=== PATIENT | female | born 1950 | race Caucasian/White ===

== ENCOUNTER 2018-06-18 10:19 | Outpatient (CLI) | payer MEDICARE ==
--- NOTE | 2018-06-18 11:58 | ULT ---
ABDOMINAL ULTRASOUND: HISTORY: Abdominal pain. FINDINGS: The liver demonstrates increased echogenicity, consistent with fatty infiltration. No focal mass or intrahepatic ductal dilatation is identified. No gallstones, gallbladder wall thickening, or pericho lecystic fluid is seen. The common duct measures 7 mm in diameter. No hydronephrosis is seen on eit her side. There is a 1.7 cm cyst on the left kidney. The visualized portions of the pancreas, aorta , and IVC are unremarkable. No free fluid is identified. IMPRESSION: 1. Fatty liver. 2. No evidence of cholelithiasis. 3. Left renal cyst. POS: [facility]
== END 2018-06-18 10:20 | disposition home or self-care (01) ==
LOC: SCSULT 10:19
PROVIDERS: ATTEND Internal Medicine
DX: R10.11 Right upper quadrant pain (principal); R10.32 Left lower quadrant pain; K76.0 Fatty (change of) liver, not elsewhere classified; N28.1 Cyst of kidney, acquired
CPT/HCPCS: 76700

== ENCOUNTER 2019-07-22 04:06 | Emergency (ER) | payer MEDICARE ==
[2019-07-22] MEDS ORDERED: Metoprolol Tartrate 5 MG/5 ML VIAL ONE (04:20)
[2019-07-22 04:32] LABS: #Basophils 0.1 thou/uL (0.0-0.2); #Eosinphils 0.1 thou/uL (0.0-0.7); #Lymphocytes 3.8 thou/uL (1.20-3.40); #Monocytes 0.9 thou/uL (0.11-0.59); #Neutrophils 4.8 thou/uL (1.40-6.50); %Basophils 1.4 % (0.0-1.0); %Eosinophils 0.7 % (0.0-10.0); %Lymphocytes 39.3 % (21.0-51.0); %Monocytes 8.9 % (0.0-10.0); %Neutrophils 49.8 % (42.0-75.0); Hemoglobin 15.6 g/dL (12.0-16.0); Mean Corpuscular HGB CONC 34.5 g/dL (32.0-36.0); Mean Corpuscular Volume 89.8 fL (78.0-98.0); Mean Platelet Volume 8.6 fL (7.4-10.4); Platelet Count 243 thou/uL (130-400); Red Blood Cell (RBC) Count 5.02 mill/uL (4.20-5.40); White Blood Cell (WBC) Count 9.7 thou/uL (4.8-10.8)
[2019-07-22 04:54] LABS: ALT (SGPT) 51 U/L (8-55); AST (SGOT) 29 U/L (5-34); Albumin 4.9 g/dL (3.4-4.8); Alkaline Phosphatase 81 U/L (40-150); Anion Gap 16 mmol/L (10-20); BUN (Urea Nitrogen) 17 mg/dL (9.8-20.1); Bilirubin, Total 0.9 mg/dL (0.2-1.2); Calc. Creatinine Clearance 0 mL/min (70-130); Calcium 10.1 mg/dL (7.8-10.44); Carbon Dioxide 23 mmol/L (23-31); Chloride 100 mmol/L (98-107); Estimated GFR-MDRD 77; Globulin 2.6 g/dL (2.4-3.5); Glucose 128 mg/dL (80-115); Potassium 3.3 mmol/L (3.5-5.1); Protein, Total 7.5 g/dL (6.0-8.3); Sodium 136 mmol/L (136-145)
--- NOTE | 2019-07-22 08:28 | RAD ---
PORTABLE CHEST: HISTORY: Dyspnea. FINDINGS: Lungs are clear. Heart and mediastinum appear normal. Vasculature normal. IMPRESSION: No acute abnormality. POS: [facility]
--- NOTE | 2019-07-23 13:38 | EKG ---
Test Reason : Blood Pressure : / mmHG Vent. Rate : 112 BPM Atrial Rate : 112 BPM P-R Int : 150 ms QRS Dur : 084 ms QT Int : 350 ms P-R-T Axes : 043 -65 047 degrees QTc Int : 477 ms Sinus tachycardia with Premature atrial complexes Left axis deviation Nonspecific ST and T wave abnormality Abnormal ECG Confirmed by JER ARMSTRONG ([id number]), editorial cartoonist KEILY HUFF ([id number]) on 07/23/2019 1:38:18 PM Referred By: Confirmed By:JER ARMSTRONG
== END 2019-07-22 05:41 | disposition home or self-care (01) ==
LOC: ERS 04:06
DX: I10 Essential (primary) hypertension (principal); E11.9 Type 2 diabetes mellitus without complications; E78.5 Hyperlipidemia, unspecified; Z79.899 Other long term (current) drug therapy; Z79.84 Long term (current) use of oral hypoglycemic drugs
CPT/HCPCS: 71045; 80053; 84443; 84484; 85025; 85379; 93005; 96374

== ENCOUNTER 2019-11-15 15:32 | Outpatient (CLI) | payer MEDICARE ==
--- NOTE | 2019-11-15 15:49 | RAD ---
EXAM: 3 views of the cervical spine HISTORY: Chronic neck pain for years and headaches COMPARISON: None FINDINGS: AP, lateral, and open mouth odontoid views of the cervical spine shows normal height and al ignment of the vertebral bodies without fracture or subluxation. There is intervertebral disc space narrowing and osteophyte formation in the mid cervical spine. No prevertebral soft tissue swelling is seen. 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
== END 2019-11-15 15:33 | disposition home or self-care (01) ==
LOC: SCSRAD 15:32
PROVIDERS: ATTEND Internal Medicine
DX: M54.2 Cervicalgia (principal); M47.812 Spondylosis without myelopathy or radiculopathy, cervical region
CPT/HCPCS: 72040